=== PATIENT | female | born 1990 | race African-American/Black ===

== ENCOUNTER 2018-10-23 09:42 | Emergency (ER) | payer OTHER ==
[2018-10-23 09:50] VITALS: BP 116/77; PULSE 86; TEMP 98.5; BMI 31.3
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
[2018-10-23] MEDS ORDERED: IBUPROFEN 400 MG TABLET (FP) PO ONE ×2 (10:20→10:23)
== END 2018-10-23 11:20 | disposition home or self-care (01) ==
LOC: FER 09:42
DX: S70.01XA Contusion of right hip, initial encounter (principal); W22.8XXA Striking against or struck by other objects, initial encounter; Y93.89 Activity, other specified; Y92.239 Unspecified place in hospital as the place of occurrence of the external cause; Y99.0 Civilian activity done for income or pay
CPT/HCPCS: 73523-TC-FY; 81025; 99282-25